=== PATIENT | male | born 2000 | race African-American/Black ===

== ENCOUNTER 2022-05-14 04:11 | Emergency (ER) | payer SELFPAY | END 2022-05-14 05:30 | disposition home or self-care (01) | LOC: ERS 04:11 | DX: J45.901 Unspecified asthma with (acute) exacerbation (principal) | CPT/HCPCS: 71045; 94640; J7620 ==

== ENCOUNTER 2023-01-21 19:50 | Emergency (ER) | payer SELFPAY ==
[2023-01-21] MEDS ORDERED: Ipratropium/Albuterol 3 ML NEB ONE (20:04)
[2023-01-21] MEDS ORDERED: Magnesium 2 GM/50 ML BAG (IN WATER) ONE (20:10)
[2023-01-21] MEDS ORDERED: methylPREDNISolone Sod Succ/PF 125 MG/2 ML VIAL ONE (20:10)
[2023-01-21 20:21] LABS: #Basophils 0.1 thou/uL (0.0-0.2); #Eosinphils 0.2 thou/uL (0.0-0.7); #Lymphocytes 2.9 thou/uL (1.20-3.40); #Monocytes 0.6 thou/uL (0.11-0.59); %Basophils 1.2 % (0.0-1.0); %Eosinophils 2.2 % (0.0-10.0); %Lymphocytes 33.3 % (21.0-51.0); %Monocytes 6.5 % (0.0-10.0); %Neutrophils 56.7 % (42.0-75.0); Mean Corpuscular HGB CONC 33.6 g/dL (32.0-36.0); Mean Corpuscular Hemoglobin 30.6 pg (27.0-31.0); Mean Corpuscular Volume 90.9 fl (78.0-98.0); Mean Platelet Volume 7.7 fL (7.4-10.4); Platelet Count 209 10x3/uL (130-400); RBC Distribution Width 11.3 % (11.5-14.5); Red Blood Cell (RBC) Count 5.55 mill/uL (4.70-6.10); White Blood Cell (WBC) Count 8.8 10x3/uL (4.8-10.8)
[2023-01-21 20:40] LABS: ALT (SGPT) 10 U/L (8-55); AST (SGOT) 26 U/L (5-34); Albumin 4.1 g/dL (3.5-5.0); Alkaline Phosphatase 47 U/L (40-110); Anion Gap 12 mmol/L (10-20); BUN (Urea Nitrogen) 14 mg/dL (8.9-20.6); Bilirubin, Total 0.8 mg/dL (0.2-1.2); Calc. Creatinine Clearance 0 mL/min (70-130); Calcium 9.3 mg/dL (7.8-10.44); Carbon Dioxide 30 mmol/L (22-29); Chloride 104 mmol/L (98-107); Estimated GFR 79; Globulin 2.2 g/dL (2.4-3.5); Glucose 91 mg/dL (70-105); Potassium 3.9 mmol/L (3.5-5.1); Protein, Total 6.3 g/dL (6.0-8.3); Sodium 142 mmol/L (136-145)
== END 2023-01-21 21:44 | disposition home or self-care (01) ==
LOC: ERS 19:50
DX: J45.901 Unspecified asthma with (acute) exacerbation (principal)
CPT/HCPCS: 36415; 71045; 80053; 85025; 93005; 94640; 96365; 96375; J2930; J3475; J7620

== ENCOUNTER 2023-02-13 19:44 | Emergency (ER) | payer SELFPAY ==
[2023-02-13] MEDS ORDERED: predniSONE 20 MG TAB ONE (19:54)
[2023-02-13] MEDS ORDERED: Ipratropium/Albuterol 3 ML NEB ONE (20:00)
== END 2023-02-13 20:29 | disposition home or self-care (01) ==
LOC: ERS 19:44
DX: J45.909 Unspecified asthma, uncomplicated (principal)
CPT/HCPCS: 99284; J7512; J7620